=== PATIENT | female | born 1940 | race Caucasian/White ===

== ENCOUNTER 2019-01-21 10:44 | Emergency (ER) | payer MEDICARE, BC ==
--- NOTE | 2019-01-21 11:26 | EDM.PDOC ---
ED HPI GENERAL MEDICAL PROBLEM - General Chief Complaint: Chest Pain Stated Complaint: PAIN IN CHEST SHORTNESS OF BREATH Time Seen by Provider: 01/21/19 11:25 Source of Information: Reports: Patient History Limitations: Reports: No Limitations - History of Present Illness INITIAL COMMENTS - FREE TEXT/NARRATIVE: pt is having chest pain in the lower left chest. This comes and goes. pt has been helping someone move for the past week and she has had alot of lifting and pulling to do. On Saturday she had several hours of a rapid irregular rhythm. Her heart rate was about 110. She has had a irregular heart beat on and off since October. Onset: Gradual, Other (pt developed chest pain yesterday. This did come and go. ) Duration: Hour(s): Location: Reports: Chest Associated Symptoms: Reports: Chest Pain, Diaphoresis, Other ( she woke up Saturday nite with a rapid heart rate. She was very sweaty at that time. ) - Related Data Allergies Allergy/AdvReac Type Severity Reaction Status Date / Time aspirin Allergy Other Verified 01/21/19 11:21 Home Meds: Home Meds Albuterol [Ventolin HFA] 2 puff INH ASDIRECTED 01/21/19 [History] Estradiol 0.25 mg PO DAILY 01/21/19 [History] Ketoconazole [Nizoral 2% Crm] 1 dose TOP ASDIRECTED 01/21/19 [History] Levothyroxine [Synthroid] 88 mcg PO DAILY 01/21/19 [History] cycloSPORINE [Restasis] 1 drop EYEBOTH BID 01/21/19 [History] metFORMIN HCl [Metformin HCl] 1,000 mg PO BID 01/21/19 [History] Social & Family History - Tobacco Use Smoking Status *Q: Never Smoker - Caffeine Use Caffeine Use: Reports: Coffee Other Caffeine Use: 1 cup regular and 1 cup decaf - Alcohol Use Days Per Week of Alcohol Use: 7 Number of Drinks Per Day: 1 Total Drinks Per Week: 7 - Recreational Drug Use Recreational Drug Use: No ED ROS GENERAL - Review of Systems Review Of Systems: See Below Constitutional: Reports: Fatigue, Decreased Appetite HEENT: Reports: No Symptoms Respiratory: Reports: No Symptoms Cardiovascular: Reports: Chest Pain, Palpitations Endocrine: Reports: No Symptoms GI/Abdominal: Reports: No Symptoms : Reports: No Symptoms Musculoskeletal: Reports: No Symptoms Skin: Reports: No Symptoms ED EXAM, GENERAL - Physical Exam Exam: See Below Free Text/Narrative:: pt arrived with pain in her lower left chest. She has been moving alot of boxes. She has not had a cough or fever. Exam Limited By: No Limitations General Appearance: Alert, Anxious, Mild Distress, Other (pt felt like her chest pain is pretty much gone at this point. ) Ears: Normal TMs Nose: Normal Inspection Throat/Mouth: Normal Inspection Head: Atraumatic Neck: Normal Inspection Respiratory/Chest: No Respiratory Distress Cardiovascular: Regular Rate, Rhythm, Other (pt did have an episode on saturday where she felt like her heart was rapid and irregular. ) GI/Abdominal: Soft, Non-Tender (Female) Exam: Deferred Rectal (Female) Exam: Deferred Back Exam: Normal Inspection Extremities: Normal Inspection Neurological: Alert, Oriented, Normal Cognition Psychiatric: Normal Affect Course - Vital Signs Last Recorded V/S: Last Vital Signs Temp 36.3 C 01/21/19 11:17 Pulse 70 01/21/19 12:20 Resp 14 01/21/19 13:20 BP 131/72 01/21/19 13:20 Pulse Ox 95 01/21/19 13:20 - Orders/Labs/Meds Orders: Active Orders 24 hr Category Date Time Status EKG Documentation Completion [RC] ASDIRECTED Care 01/21/19 11:25 Active EKG 12 Lead [EK] Routine Ther 01/21/19 11:25 Ordered Labs: Laboratory Tests 01/21/19 01/21/19 01/21/19 Range/Units 11:43 11:43 11:43 WBC 6.7 (4.5-11.0) K/uL RBC 4.47 (3.30-5.50) M/uL Hgb 13.6 (12.0-15.0) g/dL Hct 41.5 (36.0-48.0) % MCV 93 (80-98) fL MCH 30 (27-31) pg MCHC 33 (32-36) % Plt Count 276 (150-400) K/uL Neut % (Auto) 64 (36-66) % Lymph % (Auto) 22 L (24-44) % Cobb % (Auto) 12 H (2-6) % Eos % (Auto) 1 L (2-4) % Baso % (Auto) 1 (0-1) % Sodium 140 (140-148) mmol/L Potassium 4.3 (3.6-5.2) mmol/L Chloride 103 (100-108) mmol/L Carbon Dioxide 28 (21-32) mmol/L Anion Gap 9.0 (5.0-14.0) mmol/L BUN 15 (7-18) mg/dL Creatinine 0.8 (0.6-1.0) mg/dL Est Cr Clr Drug Dosing 40.29 mL/min Estimated GFR (MDRD) > 60 (>60) Glucose 120 H (74-106) mg/dL Calcium 9.6 (8.5-10.1) mg/dL Total Bilirubin 0.3 (0.2-1.0) mg/dL AST 17 (15-37) U/L ALT 24 (12-78) U/L Alkaline Phosphatase 45 L (46-116) U/L Troponin I < 0.017 (0.000-0.056) ng/mL Total Protein 7.0 (6.4-8.2) g/dL Albumin 3.6 (3.4-5.0) g/dL Globulin 3.4 (2.3-3.5) g/dL Albumin/Globulin Ratio 1.1 L (1.2-2.2) TSH, Ultra Sensitive (0.358-3.740) uIU/mL Urine Color (YELLOW) Urine Appearance (CLEAR) Urine pH (5.0-8.0) Ur Specific Constantine (1.008-1.030) Urine Protein (NEGATIVE) mg/dL Urine Glucose (UA) (NEGATIVE) mg/dL Urine Ketones (NEGATIVE) mg/dL Urine Occult Blood (NEGATIVE) Urine Nitrite (NEGATIVE) Urine Bilirubin (NEGATIVE) Urine Urobilinogen (0.2-1.0) EU/dL Ur Leukocyte Esterase (NEGATIVE) Urine RBC (0-5) Urine WBC (0-5) Ur Epithelial Cells Amorphous Sediment Urine Bacteria Urine Mucus 01/21/19 01/21/19 Range/Units 12:58 13:09 WBC (4.5-11.0) K/uL RBC (3.30-5.50) M/uL Hgb (12.0-15.0) g/dL Hct (36.0-48.0) % MCV (80-98) fL MCH (27-31) pg MCHC (32-36) % Plt Count (150-400) K/uL Neut % (Auto) (36-66) % Lymph % (Auto) (24-44) % Cobb % (Auto) (2-6) % Eos % (Auto) (2-4) % Baso % (Auto) (0-1) % Sodium (140-148) mmol/L Potassium (3.6-5.2) mmol/L Chloride (100-108) mmol/L Carbon Dioxide (21-32) mmol/L Anion Gap (5.0-14.0) mmol/L BUN (7-18) mg/dL Creatinine (0.6-1.0) mg/dL Est Cr Clr Drug Dosing mL/min Estimated GFR (MDRD) (>60) Glucose (74-106) mg/dL Calcium (8.5-10.1) mg/dL Total Bilirubin (0.2-1.0) mg/dL AST (15-37) U/L ALT (12-78) U/L Alkaline Phosphatase (46-116) U/L Troponin I (0.000-0.056) ng/mL Total Protein (6.4-8.2) g/dL Albumin (3.4-5.0) g/dL Globulin (2.3-3.5) g/dL Albumin/Globulin Ratio (1.2-2.2) TSH, Ultra Sensitive 0.322 L (0.358-3.740) uIU/mL Urine Color Yellow (YELLOW) Urine Appearance Clear (CLEAR) Urine pH 7.0 (5.0-8.0) Ur Specific [place] 1.015 (1.008-1.030) Urine Protein Negative (NEGATIVE) mg/dL Urine Glucose (UA) Negative (NEGATIVE) mg/dL Urine Ketones Negative (NEGATIVE) mg/dL Urine Occult Blood Negative (NEGATIVE) Urine Nitrite Negative (NEGATIVE) Urine Bilirubin Negative (NEGATIVE) Urine Urobilinogen 0.2 (0.2-1.0) EU/dL Ur Leukocyte Esterase Trace H (NEGATIVE) Urine RBC Not seen (0-5) Urine WBC 0-5 (0-5) Ur Epithelial Cells Not seen Amorphous Sediment Rare Urine Bacteria Not seen Urine Mucus Not seen - Re-Assessments/Exams Free Text/Narrative Re-Assessment/Exam: 01/21/19 13:59 pt had a normal chest xray, normal ekg, neg trop. She did not have irregularities while she was here. Departure - Departure Time of Disposition: 13:09 Disposition: Home, Self-Care 01 Condition: Fair Clinical Impression: Irregular heart beat, Left-sided chest wall pain Instructions: Nonspecific Chest Pain, Chest Wall Pain Referrals: Bert Leos MD [Primary Care Provider] - Forms: ED Department Discharge Additional Instructions: Robertan 01/22/19 at 9:15am. Care Plan Goals: schedule shakira, event recorder, follow up with Dr Leos, cont same meds. - My Orders Last 24 Hours: My Active Orders 01/21/19 11:25 EKG Documentation Completion [RC] ASDIRECTED EKG 12 Lead [EK] Routine - Assessment/Plan Last 24 Hours: My Active Orders 01/21/19 11:25 EKG Documentation Completion [RC] ASDIRECTED EKG 12 Lead [EK] Routine
--- NOTE | 2019-01-21 12:52 | CRLCR ---
INDICATION: Intermittent left chest pain. COMPARISON: None available. FINDINGS: PA and lateral views of the chest were obtained. The lungs are clear. No focal or diffuse infiltrates are present. The heart is normal in size. There is mild tortuosity of the descending thoracic aorta. The mediastinum is otherwise normal in appearance. There is moderate scoliosis of the thoracolumbar spine convex towards the right. IMPRESSION: No active disease seen in the chest. Dictated by Amilcar Rabago MD @ Jan 21 2019 12:49PM Signed by Dr. Amilcar Rabago @ Jan 21 2019 12:50PM
== END 2019-01-21 13:33 | disposition home or self-care (01) ==
LOC: JP.ED 10:44
DX: R07.89 Other chest pain (principal); R00.9 Unspecified abnormalities of heart beat; Z88.6 Allergy status to analgesic agent; Z79.899 Other long term (current) drug therapy
CPT/HCPCS: 36415; 71046; 80053; 81001; 84443; 84484; 85025; 93005; 93010; 99283; 99285-25

== ENCOUNTER 2020-09-03 14:25 | Emergency (ER) | payer MEDICARE, BC ==
--- NOTE | 2020-09-03 15:15 | EDM.PDOC ---
ED HPI GENERAL MEDICAL PROBLEM - General Chief Complaint: Cardiovascular Problem Stated Complaint: HEART BEATING SKIPPING CONCERN MAYBE A S Time Seen by Provider: 09/03/20 15:05 Source of Information: Reports: Patient, Old Records History Limitations: Reports: Other (limited old records access) - History of Present Illness INITIAL COMMENTS - FREE TEXT/NARRATIVE: 80 yo female presents for heart palpitations at home earlier today. She has had these on and off for quite some time. She was recently seen in the clinic and had no irrgularities noted in her rhythm. She has AODM and thyroid issues. Both of these were assessed on her last clinic visit. Her BS was a little high this morning. Her thyroid was a little high in the clinic so her thyroxine dose was reduced. Dr. Leos ordered an out patient Holter on her that is pending. She felt slightly light-headed this morning with her palpitations. She has in the not too distant past had an ECHO and a stress test that were normal. She is not on any diuretics. Onset: Unknown/Unsure (worse earlier today) Duration: Minutes: Location: Reports: Chest Quality: Reports: Other (no pain) Severity: Moderate (irregularities) Improves with: Reports: Other (unsure) Worsens with: Reports: Other (unsure) Context: Reports: Other (See HPI) Associated Symptoms: Reports: Other (light-headed) Treatments FIELD RESEARCH ASSISTANT: Reports: Other (see below) (none) - Related Data Allergies Allergy/AdvReac Type Severity Reaction Status Date / Time aspirin Allergy Headache Verified 01/22/19 10:56 Home Meds: Home Meds Albuterol [Ventolin HFA] 2 puff INH ASDIRECTED PRN 01/21/19 [History] Ketoconazole [Nizoral 2% Crm] 1 dose TOP ASDIRECTED 01/21/19 [History] Levothyroxine [Synthroid] 88 mcg PO DAILY 01/21/19 [History] cycloSPORINE [Restasis] 1 drop EYEBOTH BID 01/21/19 [History] estradioL [Estradiol] 0.25 mg PO DAILY 01/21/19 [History] metFORMIN HCl [Metformin HCl] 1,000 mg PO BID 01/21/19 [History] Past Medical History HEENT History: Reports: Cataract, Impaired Vision Cardiovascular History: Reports: High Cholesterol Gastrointestinal History: Reports: [employer] History: Reports: Neurological History: Reports: Other (See Below) 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 Endocrine/Metabolic History: Reports: Diabetes, Type II, Hypothyroidism - Past Surgical History HEENT Surgical History: Reports: Cataract Surgery Female Surgical History: Reports: Hysterectomy, Other (See Below) Other Female Surgeries/Procedures: bladder sling Social & Family History - Tobacco Use Tobacco Use Status *Q: Never Tobacco User - Caffeine Use Caffeine Use: Reports: Coffee Other Caffeine Use: 1 cup regular and 1 cup decaf ED ROS GENERAL - Review of Systems Review Of Systems: See Below Constitutional: Reports: No Symptoms HEENT: Reports: No Symptoms Respiratory: Reports: No Symptoms Cardiovascular: Reports: Palpitations GI/Abdominal: Reports: No Symptoms : Reports: No Symptoms Musculoskeletal: Reports: No Symptoms Skin: Reports: No Symptoms Neurological: Reports: No Symptoms ED EXAM, GENERAL - Physical Exam Exam: See Below Exam Limited By: No Limitations General Appearance: Alert, WD/WN, No Apparent Distress Eye Exam: Bilateral Eye: Normal Inspection Ears: Normal External Exam, Normal Canal, Hearing Grossly Normal Ear Exam: Bilateral Ear: Auricle Normal, Canal Normal Nose: Normal Inspection, No Blood Throat/Mouth: Normal Inspection, Normal Lips, Normal Oropharynx, Normal Voice, No Airway Compromise Head: Atraumatic, Normocephalic Neck: Normal Inspection Respiratory/Chest: No Respiratory Distress, Lungs Clear, Normal Breath Sounds, No Accessory Muscle Use Cardiovascular: Regular Rate, Rhythm, No Edema GI/Abdominal: Soft, Non-Tender Back Exam: Normal Inspection. No: CVA Tenderness (R), CVA Tenderness (L) Extremities: Normal Inspection, Normal Range of Motion, Non-Tender, No Pedal Edema Neurological: Alert, Oriented, CN II-XII Intact, Normal Cognition, No Mot or/Sensory Deficits Psychiatric: Normal Affect, Normal Mood Skin Exam: Warm, Dry, Intact, Normal Color, No Rash Course - Vital Signs Last Recorded V/S: Last Vital Signs Temp 36.6 C 09/03/20 15:08 Pulse 81 09/03/20 15:08 Resp 13 09/03/20 15:08 BP 158/78 H 09/03/20 15:08 Pulse Ox 98 09/03/20 15:08 - Orders/Labs/Meds Orders: Active Orders 24 hr Category Date Time Status Cardiac Monitoring [RC] .As Directed Care 09/03/20 14:48 Active EKG Documentation Completion [RC] ASDIRECTED Care 09/03/20 15:36 Active Sodium Chloride 0.9% [Saline Flush] Med 09/03/20 15:36 Active 10 ml FLUSH ASDIRECTED PRN EKG 12 Lead [EK] Routine Ther 09/03/20 15:36 Ordered Medication Orders Sodium Chloride (Sodium Chloride 0.9% 10 Ml Syringe) 10 ml FLUSH ASDIRECTED PRN PRN Reason: Keep Vein Open Labs: Laboratory Tests 09/03/20 09/03/20 09/03/20 Range/Units 15:49 15:49 15:49 WBC 7.3 (4.5-11.0) K/uL RBC 4.63 (3.30-5.50) M/uL Hgb 13.9 (12.0-15.0) g/dL Hct 42.1 (36.0-48.0) % MCV 91 (80-98) fL MCH 30 (27-31) pg MCHC 33 (32-36) % Plt Count 316 (150-400) K/uL Sodium 142 (140-148) mmol/L Potassium 4.4 (3.6-5.2) mmol/L Chloride 104 (100-108) mmol/L Carbon Dioxide 28 (21-32) mmol/L Anion Gap 10.0 (5.0-14.0) mmol/L BUN 17 (7-18) mg/dL Creatinine 0.9 (0.6-1.0) mg/dL Est Cr Clr Drug Dosing 34.62 mL/min Estimated GFR (MDRD) 60 (>60) Glucose 124 H (74-106) mg/dL Calcium 9.5 (8.5-10.1) mg/dL Magnesium 1.9 (1.8-2.4) mg/dL Troponin I < 0.017 (0.000-0.056) ng/mL Meds: Medications Generic Name Dose Route Start Last Admin Trade Name Freq PRN Reason Stop Dose Admin Sodium Chloride 10 ml 09/03/20 15:36 Sodium Chloride 0.9% 10 Ml Syringe FLUSH ASDIRECTED PRN Keep Vein Open Departure - Departure Time of Disposition: 16:30 Disposition: Home, Self-Care 01 Condition: Fair Clinical Impression: Dropped heart beats Referrals: Bert Leos MD [Primary Care Provider] - Forms: ED Department Discharge Additional Instructions: Stay in touch with your doctor about your condition, especially if it worsens. No changes recommended in your meds at this time. Sepsis Event Note (ED) - Evaluation Sepsis Screening Result: No Definite Risk - Focused Exam Vital Signs: Vital Signs Temp Pulse Resp BP Pulse Ox 09/03/20 15:08 36.6 C 81 13 158/78 H 98 09/03/20 14:59 36.6 C 81 13 158/78 H 98 - My Orders Last 24 Hours: My Active Orders 09/03/20 14:48 Cardiac Monitoring [RC] .As Directed 09/03/20 15:36 EKG Documentation Completion [RC] ASDIRECTED Sodium Chloride 0.9% [Saline Flush] 10 ml FLUSH ASDIRECTED PRN EKG 12 Lead [EK] Routine - Assessment/Plan Last 24 Hours: My Active Orders 09/03/20 14:48 Cardiac Monitoring [RC] .As Directed 09/03/20 15:36 EKG Documentation Completion [RC] ASDIRECTED Sodium Chloride 0.9% [Saline Flush] 10 ml FLUSH ASDIRECTED PRN EKG 12 Lead [EK] Routine
[2020-09-03] MEDS ORDERED: Sodium Chloride 0.9% 10 ML Syringe FLUSH PRN (15:36)
== END 2020-09-03 17:09 | disposition home or self-care (01) ==
LOC: JP.ED 14:25
DX: I45.9 Conduction disorder, unspecified (principal); E11.9 Type 2 diabetes mellitus without complications; E03.9 Hypothyroidism, unspecified; Z79.84 Long term (current) use of oral hypoglycemic drugs; Z79.899 Other long term (current) drug therapy; Z88.6 Allergy status to analgesic agent
CPT/HCPCS: 36415; 80048; 83735; 84484; 85027; 99285-25

== ENCOUNTER 2024-05-28 06:31 | Day surgery (SDC) | payer MEDICARE, BC ==
[~2024-05-28 06:31] MED LIST: Lactated Ringers 1,000 ML IV SCH
[2024-05-28] MEDS ORDERED: Propofol 200 MG/20 ML SDV ONE (07:03)
[2024-05-28] MEDS: Lactated Ringers 1,000 ML IV SCH (07:14)
== END 2024-05-28 09:00 | disposition home or self-care (01) ==
LOC: JP.SDS 06:31
PROVIDERS: ATTEND Surgery
DX: R13.10 Dysphagia, unspecified (principal); E78.5 Hyperlipidemia, unspecified; E11.9 Type 2 diabetes mellitus without complications; E03.9 Hypothyroidism, unspecified
CPT/HCPCS: 00731-QZ; 88305; J2704; J7120